=== PATIENT | female | born 1945 | race Caucasian/White ===

== ENCOUNTER 2016-11-22 06:49 | Inpatient (IN) ==
--- NOTE | 2016-11-21 21:40 | Discharge Summary ---
<Pavithar Vigil - Last Filed: 11/21/16 21:57> Date of Encounter: 11/21/16 - Discharge Diagnosis (1) Rotator cuff tear arthropathy of right shoulder Priority: Primary Status: Acute (2) Depression Priority: Secondary Status: Chronic Qualifiers: Depression Type: unspecified Qualified Code(s): F32.9 - Major depressive disorder, single episode, unspecified (3) DMII (diabetes mellitus, type 2) Priority: Secondary Status: Chronic Qualifiers: Diabetes mellitus complication status: without complication Diabetes mellitus fci insulin use: unspecified intermediate project manager insulin use status Qualified Code(s): E11.9 - Type 2 diabetes mellitus without complications (4) Fibromyalgia Priority: Secondary Status: Chronic (5) HTN (hypertension) Priority: Secondary Status: Acute Qualifiers: Hypertension type: essential hypertension Qualified Code(s): I10 - Essential (primary) hypertension (6) Status post total replacement of right shoulder Priority: Primary Status: Acute - Discharge Medications Home Medications: Aspirin Enteric Coated [Aspirin EC] 81 mg PO DAILY 11/26/15 [History] Ca/D3/Mag#11/Zinc/Cake Press Operator/Darrick/Bor [Caltrate 600+D Plus Tablet] 1 tab PO DAILY 11/25 [History] Cholecalciferol (D-3) [Vitamin D] 2,000 unit PO DAILY 11/26/15 [History] Flaxseed Oil [[place]-3 Flaxseed Oil] 1,000 mg PO DAILY 11/26/15 [History] Lisinopril [Zestril] 5 mg PO DAILY 11/26/15 [History] Lovastatin [Mevacor] 20 mg PO HS 11/26/15 [History] Omeprazole [PriLOSEC] 20 mg PO DAILY 11/26/15 [History] Potassium Chloride [K-Tab ER] 10 meq PO DAILY 11/26/15 [History] hydrOXYzine HCl [Hydroxyzine HCl] 25 mg PO TID 11/26/15 [History] metFORMIN [Glucophage] 500 mg PO BIDWM 11/26/15 [History] Duloxetine HCl [Cymbalta] 60 mg PO DAILY 01/15/16 [History] OxyCODONE Immed Rel [Roxicodone 5 MG] 5 - 10 mg PO Q6HR PRN #40 tablet 11/21/16 [Rx] Ascorbic Acid [Vitamin C] 500 mg PO DAILY 11/22/16 [History] Hydrocodone/Acetaminophen [[place] 7.5-325 Tablet] 1 tab PO Q6H PRN 11/22/16 [ History] Allergies/Adverse Reactions: Allergies bupropion [From Wellbutrin] Adverse Reaction (Verified 11/22/16 08:17) Vomiting Primary care physician: Cholo Stinson MD - Patient Status Disposition: Home, Self-Care Condition: Good - Discharge Instructions Follow Up With: Cholo Stinson MD [Primary Care Provider] - - Hospital Course Hospital course: Ms. Hill is a 70 year old female - Time Spent with Patient Total time spent providing and/or coordinating discharge services: <Jerel Unger - Last Filed: 11/23/16 06:19> Date of Encounter: 11/23/16 Time of Encounter: 06:18 - Discharge Diagnosis (1) Obesity (BMI 35.0-39.9 without comorbidity) Priority: Secondary Status: Chronic (2) Rotator cuff tear arthropathy of right shoulder Priority: Primary Status: Chronic (3) Depression Priority: Secondary Status: Chronic Qualifiers: Depression Type: unspecified Qualified Code(s): F32.9 - Major depressive disorder, single episode, unspecified (4) DMII (diabetes mellitus, type 2) Priority: Secondary Status: Chronic Qualifiers: Diabetes mellitus complication status: without complication Diabetes mellitus intermediate project manager insulin use: unspecified intermediate project manager insulin use status Qualified Code(s): E11.9 - Type 2 diabetes mellitus without complications (5) Fibromyalgia Priority: Secondary Status: Chronic (6) HTN (hypertension) Priority: Secondary Status: Chronic Qualifiers: Hypertension type: essential hypertension Qualified Code(s): I10 - Essential (primary) hypertension (7) Status post total replacement of right shoulder Priority: Primary Status: Acute (8) Dyspnea Priority: Primary Status: Acute Qualifiers: Dyspnea type: shortness of breath Qualified Code(s): R06.02 - Shortness of breath (9) Postoperative hypoxemia Priority: Primary Status: Acute Primary care physician: Cholo Stinson MD - Patient Status Functional capacity at discharge: independent ambulation Overall status at discharge: patient is progressing back to baseline - Hospital Course Hospital course: Ms. Hill is a 70 year old female Status post right total shoulder replacement. Patient developed postoperative hypoxemia and dyspnea. Patient had a CT angiogram of the chest which was negative for PE. Patient responded to supportive management on discharge she is doing well no shortness of breath. She received physical therapy and antibiotics follow 1 week. - Time Spent with Patient Total time spent providing and/or coordinating discharge services:
[2016-11-22] MEDS ORDERED: CeFAZolin Pre 2,000 MG/100 ML 2,000 MG/100 ML BAG IVPB ONE (07:29)
[2016-11-22] MEDS ORDERED: Gabapentin 300 MG CAPSULE PO ONE (07:30)
[2016-11-22] MEDS ORDERED: Ringers Solution, Lactated 1,000 ML IVC SCH ×2 (07:30→11:11)
[2016-11-22] MEDS ORDERED: Famotidine 20 MG/2 ML VIAL IVP ONE (07:32)
--- NOTE | 2016-11-22 07:45 | History & Physical Report ---
Date of Encounter: 11/22/16 Time of Encounter: 07:44 24 Hour HP Update - Instructions Instructions: If the History and Physical is less than 30 days old and was completed prior to A.M. admission and or procedure and has NOT been updated on calendar day of procedure please complete this update prior to performing procedure. - Update Patient reports changes in Medical Condition: No Changes in examination, assessment, or condition: No Changes in Medication: No Preop tests/diagnostics Reviewed: Yes Surgery Remains Indicated: Yes Consent for Planned Operative Procedure(s) Verified: Yes - Pre-Operative Checklist Preoperative Checklist Indicated: No Prophylactic Antibiotic Ordered: Yes Is VTE Prophylaxis Indicated?: Yes
[2016-11-22] MEDS ORDERED: *HR* Succinylcholine 200 MG/10 ML VIAL IVP ONE (08:20)
[2016-11-22] MEDS ORDERED: Ondansetron 4 MG/2 ML VIAL ONE (08:20)
[2016-11-22] MEDS ORDERED: Lidocaine -MPF 2% 2 ML VIAL ONE (08:20)
[2016-11-22] MEDS ORDERED: *HR* FentaNYL (PF) 100 MCG/2 ML VIAL ONE (08:21)
[2016-11-22] MEDS ORDERED: *HR* Midazolam HCl 2 MG/2 ML VIAL ONE (08:21)
--- NOTE | 2016-11-22 08:47 | Anesthesia Evaluation PreOp ---
Date of Encounter: 11/22/16 Time of Encounter: 08:45 - Past History Planned Operation: Rt Total Shoulder Replacement Cardiac History: HTN, Hyperlipidemia Pulmonary History: Denies Any Significant HX NETWORK DIRECTOR History: Denies Any Significant HX Other Medical History: Diabetes Type II, GERD, Other (IBS) Anesthesia History: No Prior Anesthetic Complications Alcohol Use: none Drug use: none Medications and Allergies Aspirin Enteric Coated [Aspirin EC] 81 mg PO DAILY 11/26/15 [History] Ca/D3/Mag#11/Zinc/Photoengraving Finisher/Darrick/Bor [Caltrate 600+D Plus Tablet] 1 tab PO DAILY 11/25 [History] Cholecalciferol (D-3) [Vitamin D] 2,000 unit PO DAILY 11/26/15 [History] Flaxseed Oil [[place]-3 Flaxseed Oil] 1,000 mg PO DAILY 11/26/15 [History] Lisinopril [Zestril] 5 mg PO DAILY 11/26/15 [History] Lovastatin [Mevacor] 20 mg PO HS 11/26/15 [History] Omeprazole [PriLOSEC] 20 mg PO DAILY 11/26/15 [History] Potassium Chloride [K-Tab ER] 10 meq PO DAILY 11/26/15 [History] hydrOXYzine HCl [Hydroxyzine HCl] 25 mg PO TID 11/26/15 [History] metFORMIN [Glucophage] 500 mg PO BIDWM 11/26/15 [History] Duloxetine HCl [Cymbalta] 60 mg PO DAILY 01/15/16 [History] OxyCODONE Immed Rel [Roxicodone 5 MG] 5 - 10 mg PO Q6HR PRN #40 tablet 11/21/16 [Rx] Ascorbic Acid [Vitamin C] 500 mg PO DAILY 11/22/16 [History] Hydrocodone/Acetaminophen [[place] 7.5-325 Tablet] 1 tab PO Q6H PRN 11/22/16 [ History] Allergies bupropion [From Wellbutrin] Adverse Reaction (Verified 11/22/16 08:17) Vomiting - Meds/Allergy Pre-op Review Medications Reviewed: Yes Allergies Reviewed: Yes Beta Blockers on Current Med List: No Anesthesia Results - Labs Laboratory Tests 11/17/16 11/17/16 10:44 10:44 Hgb 14.6 Hct 45.1 H Plt Count 294 Sodium 138 Potassium 4.0 BUN 12 Creatinine 0.82 - Imaging EKG: report reviewed (SR Borderline Left [place] Deviation) Additional studies: ECHO 2014 LVEF 60% Stress Negative Anesthesia Exam O2 Sat Height 1.55 m Height 1.55 m Weight 87.543 kg Weight 87.543 kg O2 Sat by Pulse Oximetry 92 Vital Signs Temp Pulse Resp BP Pulse Ox 98.3 F 96 18 142/77 92 11/22/16 07:29 11/22/16 07:29 11/22/16 07:29 11/22/16 07:29 11/22/16 07:29 Height: 5'1 Weight: 193 lbs NPO (# of Hours): [place] Pain Scale: 0 - HEENT Pupil (Motor): Pupils equal, EOMI Mallampati: III Teeth: Edentulous Oral Opening: Less than or equal to 3 - NETWORK DIRECTOR LOC: Oriented NETWORK DIRECTOR Motor: Normal RUE, Normal LUE, Normal RLE, Normal LLE, Normal Face NETWORK DIRECTOR Sensory: Normal: RUE, LUE, RLE, LLE, Face - Cardiac Rhythm: Regular Murmur: None JVD: No Carotid Bruit: No - Pulmonary Breath Sounds: bilateral Clear Respiratory Effort: Symmetrical Anesthesia Assess/Plan ASA Score: 3 (HTN DM Gerd) Modified Wiley Scale for Level of Consciousness: Cooperative, oriented, and tranquil Anesthetic Plan: General, Regional Monitoring Plan: Standard Monitors Recovery Plan: PACU (Discussed GA and RA, agrees to proceed)
[2016-11-22] MEDS ORDERED: ROPIVACAINE HCL/PF 0.5% 30 ML VIAL ONE (09:07)
[2016-11-22] MEDS ORDERED: Tetracaine/PF 20 MG/2 ML AMPUL ONE (09:08)
[2016-11-22] MEDS ORDERED: *HR* HYDROmorphone (PF) 1 MG/ML SYRINGE IVP PRN (09:52)
[2016-11-22] MEDS ORDERED: *HR* Meperidine 25 MG/ML SYRINGE IVP PRN (09:52)
[2016-11-22] MEDS ORDERED: *HR* Propofol 200 MG/20 ML VIAL IVP ONE (09:56)
--- NOTE | 2016-11-22 09:57 | Anesthesia Procedures ---
Date of Encounter: 11/22/16 Time of Encounter: 09:15 Procedures: Anesthesia - Nerve Block Procedure Date: 11/22/16 Time: 09:15 Checklist: Correct Patient Identifier Correct side: Right Blood Thinner: No Monitor Applied: EKG, BP, Pulse Oximetry Supplemental Oxygen via Nasal Cannula (L/min): 2 Sedation: Fentanyl (mcg): 100 Indication: Post Op Analgesia Pre-op Neuro Deficits: No Block Type: Supraclavicular, Other (ICM/intercosto.) Catheter placed: No Sterile Technique: Yes Ultrasound used: Yes Anatomy identified: Yes Visual spread of Local: Yes Neuro Stimulation: No Blood on Needle Aspiration: No Smooth Injection of Local: Yes Pain with Injection of Local: No Prep: Chlorhexadine Needle: 22 x 50 mm Stimuplex Local: Ropivacaine (0.5 % with 8 of decadron) Volume (cc): 30 Number of Attempts: 1 Complications: None/effective block Vitals: vss
[2016-11-22] MEDS ORDERED: Dexamethasone 4 MG/ML VIAL ONE ×2 (10:00)
--- NOTE | 2016-11-22 10:18 | Orthopedic Operative Note ---
Date of procedure: 11/22/16 Pre-op diagnosis: Right shoulder cuff tear arthropathy Post-op diagnosis: same Procedure: Procedure: Total Shoulder Replacment Reverse, right Estimated blood loss: 100 cc Hardware: Metal and polyethylene replacement: Arthrex small glenoid baseplate, 2 4.5 screws. 1 6.5 screw, 36+4 glenosphere, 6 humeral stem, poly insert 3 and 6 metal Exam Under anesthesia: Full motion and no instability Procedural Notes: Grade 4 arthritic changes humeral head glenoid socket, irreparable tear [id number] tendon. Operative procedure: The patient was brought to the operating room and placed on the operating room table. After general anesthesia was administered the operative shoulder was examined. Findings were noted. The patient was placed in the modified beachchair position. All pressure points were padded appropriately. And the head was stabilized in the neutral position. The operative extremity was prepped and draped in the sterile surgical fashion. The patient received IV antibiotics prior to skin incision. A standard deltopectoral approach was made to the operative shoulder. Incision was made to the skin and subcutaneous tissue,hemo stasis was obtained with Bovie cautery. Using careful blunt dissection the cephalic vein was identified and mobilized medially. The deltopectoral interval was developed and the clavipectoral fascia was incised. The subscap was released off the lesser tuberosity and tagged with #2 FiberWire suture, subscap was irreparable. The humerus was dislocated patient noted to have irreparable tear supraspinatus tendon, and the humeral cut was made along the anatomic neck. Patient noted to have grade 4 arthritic changes humeral head and glenoid socket. Anterior and posterior Bankart retractors were placed to expose the glenoid. The glenoid guide was seated and the centering hole was made. It was reamed with the appropriate reamer. The small baseplate was seated and secured with (2) 4.5 screws and one 6.5 screw. The baseplate was irrigated and dried and the 36+4 Glenosphere was seated and secured with the Dunn taper. The Dunn taper was tested and found to be secure the humerus was redislocated and prepared with the diaphyseal reamers, followed by a broaching process up to the appropriate size 6 in the patient's anatomic version. The metaphyseal reamer was then utilized. Trial reduction found the shoulder to be relocatable. Trial components were removed and the appropriate size 6 stem was impacted in place in the patient's anatomic version. Trial reduction found the shoulder to be relocatable and stable with the appropriate 3 [place] in 6 metal Trial component was removed and the real implants was seated and secured the shoulder was reduced. The shoulder had excellent motion and excellent stability and no evidence of dislocation. The deep tissue was irrigated with pulse irrigation. The PA closed the shoulder. The deltopectoral interval was closed with a running #1 PDS suture, subcutaneous tissue was irrigated and closed with 0 PDS suture, the skin was closed with Dermabond. The patient was placed in a sterile dressing, abduction brace and extubated. The patient was then transferred to the recovery room in stable condition. Anesthesia: LLUVIA Surgeon: Jerel Unger Paint Specialist: Latisha Contreras Condition: stable Disposition: PACU
[2016-11-22 11:06] LABS: Hematocrit 39.6 % (35.3-44.9)
[2016-11-22] MEDS ORDERED: Sennosides 8.6 MG TABLET PO PRN (11:11)
[2016-11-22] MEDS ORDERED: *HR* OxyCODONE Immed Rel 5 MG TABLET PO PRN (11:11)
[2016-11-22] MEDS ORDERED: ceFAZolin 2,000 MG in D5% in Water 100 ML IVPB SCH (11:11)
[2016-11-22] MEDS ORDERED: Dextrose Gel 15 GM PO PRN ×2 (11:11)
[2016-11-22] MEDS ORDERED: D5% in Water 1,000 ML IVC PRN (11:11)
[2016-11-22] MEDS ORDERED: Temazepam 15 MG CAPSULE PO PRN (11:11)
[2016-11-22] MEDS ORDERED: MOM Conc 10 ML UD.LIQ PO PRN (11:11)
[2016-11-22] MEDS ORDERED: Naloxone 0.4 MG/ML INJ IVP PRN (11:11)
[2016-11-22] MEDS ORDERED: *HR* Dextrose 50 % in Water (Syg) 50 ML SYRINGE IVP PRN (11:11)
[2016-11-22] MEDS ORDERED: Ondansetron 4 MG/2 ML VIAL IVP PRN (11:11)
--- NOTE | 2016-11-22 11:14 | Anesthesia Evaluation Post Op ---
Date of Encounter: 11/22/16 Time of Encounter: 11:13 - Vital Signs Vital Signs: Last Vital Signs Temp 97.6 F 11/22/16 10:55 Pulse 92 11/22/16 10:55 Resp 18 11/22/16 10:55 BP 114/63 11/22/16 10:55 Pulse Ox 98 11/22/16 10:55 - Lungs Lungs: Clear Ascult./Percussion - Airway Airway: Non-obstructed - Cardiovascular Regular Rate - Mental Status Mental Status: Alert & Oriented, Answers Appropriately - Pain Pain Scale: 2 - Nausea Vomiting Nausea Vomiting: Not Present - Hydration Hydration: NPO - Discharge PostOp Status: Transfer Patient to floor
[2016-11-22] MEDS ORDERED: Furosemide 20 MG/2 ML VIAL IVP ONE (14:49)
[2016-11-22] MEDS: *HR* Enoxaparin 30 MG/0.3 ML SYRINGE SQ SCH (15:03)
[2016-11-22] MEDS: ceFAZolin 2,000 MG in D5% in Water 100 ML IVPB SCH (15:05)
[2016-11-22 15:36] LABS: BUN/Creatinine Ratio 16 (6-26); Blood Urea Nitrogen 15 mg/dL (7-20); Calcium 9.6 mg/dL (8.6-10.8); Carbon Dioxide 26 mEq/L (19-29); Chloride 101 mEq/L (98-109); Glucose 319 mg/dL (70-99); Osmolality,Calculated 299 (280-300); Potassium 4.9 mEq/L (3.5-4.5); Sodium 138 mEq/L (136-145); eGFR For African Americans > 60 (> 60); eGFR For Non-African Americans 58 (> 60)
[2016-11-22] MEDS: *HR* Metformin 500 MG TABLET PO SCH (15:55)
[2016-11-22] MEDS: Ascorbic Acid 500 MG TABLET PO SCH (15:59)
[2016-11-22] MEDS: (Ca/D3/Mag#11/Zinc/Cop/Mang/Bor [Caltrate 600+D Plus PO SCH (16:00)
--- NOTE | 2016-11-22 16:01 | Event Note ---
Date of Encounter: 11/22/16 Time of Encounter: 15:00 Patient seen at bedside as nursing documented acute oxygen desaturation to low 70's and dyspnea. On exam, patient has labored breathing, pallor, and diaphoretic. Patient taking gasping breath every third word. Patient relays that she has had episodes like this for years with exertion and a known heart murmur. States that she has not been seeing a data review specialist for this condition. Patient heart rate is regularly irregular, systolic murmur noted, lung sounds congested in all lung spencer, patient RR 25, HR during examination 115, BP 158/ 110, O2 via nasal canulla at 2L, O2 saturation 88%. Fluid hold, stat chest xray , stat BMP, Lasix 20mg IVP, Lovenox, and stat CTA as well as stat hospitalist consult ordered. CXR reviewed - negative for acute changes. Patient urinating independently - secondary to lasix and patient reveals was placed on abx for UTI appx 5 days prior to surgery will place on [place] temporarily and culture urine. S/w hospitalist who states after the above patient is stable for CTA scan , ICU bed request - also to get doppler of left LE secondary to calf pain patient states has been present for past 5 days and above symptomatology. Above communicated with Dr. Unger.
--- NOTE | 2016-11-22 16:34 | Internal Medicine Consult Note ---
<Caitlin Mathew - Last Filed: 11/22/16 23:36> Date of Encounter: 11/22/16 Time of Encounter: 16:28 - Assessment and Plan (1) Dyspnea Current Visit: Yes Status: Acute Assessment and plan: Patient had episode of shortness of breath and hypoxia which started during her therapy, with reports of saturations in 70s on room air, and improved to 92% on 2L NC. Patient reports her symptoms happen to her frequently at home and are relieved when she sits in front of a fan or air-conditioning. Stat CXR did not show any pulmonary vascular congestion or consolidation. Concern for DVT/PE, stat CTA chest showed no pulmonary embolism or acute pulmonary abnormality. BLE dopplers pending. Acute shortness of breath and hypoxia likely related to a combination of coming off of anesthesia and anxiety. titrate O2 to maintain saturations > 92% Incentive spirometry. Qualifiers: Dyspnea type: shortness of breath Qualified Code(s): R06.02 - Shortness of breath (2) Status post total replacement of right shoulder Current Visit: Yes Status: Acute Assessment and plan: Care per primary team. (3) DMII (diabetes mellitus, type 2) Current Visit: Yes Status: Chronic Assessment and plan: check blood sugars ACHS. Continue home metformin Sliding scale correction dose ACHS hypoglycemic protocol. 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 Continue home doses of medications. Qualifiers: Hypertension type: essential hypertension Qualified Code(s): I10 - Essential (primary) hypertension Internal Medicine - CN: HPI - Data of Consult Patient: new to practice Requesting Physician: Jerel Unger MD - Consult Narrative Reason for consult: hypoxia History of present illness: Ms. Hill is a 70 year old female with HTN, diabetes, GERD and history of colon cancer s/p right daja-colectomy, admitted for right total shoulder replacement by Dr. Unger, which she underwent earlier today. We were consulted after the patient developed shortness of breath, hypoxia and tachycardia. Patient was reportedly satting in the 70s% on room air and improved to 92% on 2L. She was tachycardic to 110s as well, and was reporting calf tenderness. Stat CXR, CTA chest and BLE dopplers ordered. CXR showed no focal airspace consolidation or pulmonary vascular congestion. CT Chest is pending. Patient reports she has episodes like these frequently at home. She reports she has sudden onset of shortness of breath with sweating and she feels better after sitting in front of a fan. On my assessment, patient reports she is feeling much better than before. She denies any chest pain or palpitations. Past Med Surg Social Fam HX - Past Medical History Medical history: arthritis, diabetes, GERD, hypertension Psychiatric history: anxiety, depression - Past Surgical History Surgical History: hysterectomy - Social History Smoking Status: Never smoker Smokeless Tobacco Status: No Alcohol use: none Drug use: none - Constitutional Constitutional: excessive sweating, no fever(s), no weakness - Cardiovascular Cardiovascular ROS IM: diaphoresis, dyspnea, no chest pain, no palpitations, no syncope - Respiratory Respiratory: dyspnea, no cough, no wheezing, no excessive phlegm production - Gastrointestinal Gastrointestinal: no abdominal pain, no diarrhea, no nausea, no vomiting - Genitourinary Genitourinary: no dysuria Internal Medicine - CN: Meds Aspirin Enteric Coated [Aspirin EC] 81 mg PO DAILY 11/26/15 [History] Ca/D3/Mag#11/Zinc/Manager Mobility/Darrick/Bor [Caltrate 600+D Plus Tablet] 1 tab PO DAILY 11/25 [History] Cholecalciferol (D-3) [Vitamin D] 2,000 unit PO DAILY 11/26/15 [History] Flaxseed Oil [[place]-3 Flaxseed Oil] 1,000 mg PO DAILY 11/26/15 [History] Lisinopril [Zestril] 5 mg PO DAILY 11/26/15 [History] Lovastatin [Mevacor] 20 mg PO HS 11/26/15 [History] Omeprazole [PriLOSEC] 20 mg PO DAILY 11/26/15 [History] Potassium Chloride [K-Tab ER] 10 meq PO DAILY 11/26/15 [History] hydrOXYzine HCl [Hydroxyzine HCl] 25 mg PO TID 11/26/15 [History] metFORMIN [Glucophage] 500 mg PO BIDWM 11/26/15 [History] Duloxetine HCl [Cymbalta] 60 mg PO DAILY 01/15/16 [History] OxyCODONE Immed Rel [Roxicodone 5 MG] 5 - 10 mg PO Q6HR PRN #40 tablet 11/21/16 [Rx] Ascorbic Acid [Vitamin C] 500 mg PO DAILY 11/22/16 [History] Hydrocodone/Acetaminophen [[place] 7.5-325 Tablet] 1 tab PO Q6H PRN 11/22/16 [ History] Allergies bupropion [From Wellbutrin] Adverse Reaction (Verified 11/22/16 08:17) Vomiting Internal Medicine - CN: Exam - Constitutional Vitals: Temp Pulse Resp BP Pulse Ox 98.4 F 117 20 141/86 92 11/22/16 13:15 11/22/16 13:15 11/22/16 13:15 11/22/16 13:15 11/22/16 13:15 General appearance IM: Present: A&O X 3, pleasant, no acute distress - Head Head exam: Present: atraumatic, normocephalic - Eye Eye exam: Present: PERRL, conjuntiva pink, sclera anicteric - Neck Neck exam general surgery: Present: supple, trachea midline - Respiratory Respiratory exam: Present: CTAB. Absent: accessory muscle use, rales, rhonchi, wheezes - Cardiovascular Cardiovascular exam IM: Present: RRR, +S1, +S2, systolic murmur. Absent: bradycardia, clicks, gallop, tachycardia - GI/Abdominal GI/Abdominal exam IM: Present: soft. Absent: distended, tenderness, no peritoneal signs - Extremities Exam Additional comments: shoulder with surgical dressing and sling in place - Neurological Exam Neurological exam: Present: alert, CN II-XII intact, oriented X3, strengths equal and symetr throughout. Absent: facial droop, speech deficit Internal Medicine - CN: Reslt - Labs CBC & Chem 7: 11/22/16 10:56 11/22/16 15:07 Labs: Short CBC 11/22/16 Range/Units 10:56 Hgb 13.0 D (11.5-15.4) g/dL Hct 39.6 (35.3-44.9) % BMP 11/22/16 15:07 Sodium 138 Potassium 4.9 H Chloride 101 Carbon Dioxide 26 BUN 15 Creatinine 0.95 Glucose 319 H Calcium 9.6 - Impressions Impressions Shoulder X-Ray 11/22/16 00:01 IMPRESSION: Status post right shoulder arthroplasty without evidence of acute postoperative complication. D/ / 11/22/2016 12:41:47 Juan Luis David MD / bcarter Interpreting Provider: Juan Luis David MD Chest X-Ray 11/22/16 14:29 IMPRESSION: No focal airspace consolidation or pulmonary vascular congestion. D/ / Aaron Teran / Aaron Teran Interpreting Provider: Aaron Teran - Diagnostic Studies Chest x-ray Additional comments: Chest X-Ray 11/22/16 14:29 IMPRESSION: No focal airspace consolidation or pulmonary vascular congestion. D/ / Aaron Teran / Aaron Teran Interpreting Provider: Aaron Teran Consult Discharge Plan - Plan Referrals: Cholo Stinson MD [Primary Care Provider] - <Crow Vallejo - Last Filed: 11/23/16 07:48> Date of Encounter: 11/23/16 Internal Medicine - CN: HPI - Data of Consult Requesting Physician: Jerel Unger MD - Consult Narrative History of present illness: Ms. Hill is a 70 year old female Internal Medicine - CN: Exam - Constitutional Vitals: Temp Pulse Resp BP Pulse Ox 97.8 F 77 17 166/91 98 11/23/16 06:55 11/23/16 06:55 11/23/16 06:55 11/23/16 06:55 11/23/16 06:55 Internal Medicine - CN: Reslt - Labs CBC & Chem 7: 11/23/16 03:00 11/23/16 03:00 Labs: Short CBC 11/22/16 11/23/16 Range/Units 10:56 03:00 Hgb 13.0 D 12.0 (11.5-15.4) g/dL Hct 39.6 36.3 (35.3-44.9) % BMP 11/22/16 11/23/16 15:07 03:00 Sodium 138 140 Potassium 4.9 H 4.2 Chloride 101 101 Carbon Dioxide 26 29 BUN 15 17 Creatinine 0.95 0.86 Glucose 319 H 210 H Calcium 9.6 9.4 Urine 11/22/16 Range/Units 17:55 Urine Color Yellow (Yellow) Urine Clarity Clear (Clear) Urine pH 6.5 (5.0-8.0) pH Units Ur Specific [place] 1.020 (1.010-1.025) Urine Protein Negative (Neg-Trace) mg/dL Urine Glucose (UA) 250 H (Normal) mg/dL - Impressions Impressions Shoulder X-Ray 11/22/16 00:01 IMPRESSION: Status post right shoulder arthroplasty without evidence of acute postoperative complication. D/ / 11/22/2016 12:41:47 Juan Luis David MD / [place] Interpreting Provider: Juan Luis David MD Chest X-Ray 11/22/16 14:29 IMPRESSION: No focal airspace consolidation or pulmonary vascular congestion. D/ / Aaron Teran / Aaron Teran Interpreting Provider: Aaron Teran Chest CTA 11/22/16 14:47 IMPRESSION: No evidence of pulmonary embolism or acute pulmonary abnormality. Moderate hiatal hernia. D/ / Maia Grubbs Cha, MD / Maia Grubbs Cha, MD Interpreting Provider: Maia Grubbs Cha, MD - Attending Attestation I have personally performed a face to face evaluation on this patient and I discussed the assessment and plan with the nurse practitioner. I have reviewed and agree with the documented care plan. History and Exam by me shows: Ms. Hill is a 70 year old female with HTN, diabetes, GERD and history of colon cancer s/p right daja-colectomy, admitted for right total shoulder replacement by Dr. Unger, which she underwent earlier today. We were consulted after the patient developed shortness of breath, hypoxia and tachycardia. Patient was reportedly satting in the 70s% on room air and improved to 92% on 2L. She was tachycardic to 110s as well, and was reporting calf tenderness. Stat CXR, CTA chest and BLE dopplers ordered. CXR showed no focal airspace consolidation or pulmonary vascular congestion. CT Chest is pending. Patient reports she has episodes like these frequently at home. She reports she has sudden onset of shortness of breath with sweating and she feels better after sitting in front of a fan. Gen: A, A, O x 3 Chest: Mild diminished BS b/l basal regions, no crackles / rhonchi Heart : S1 S2 +, RRR, No murmurs Ext: Rt shoulder repair - dressing + sling placed on No calf tenderness in both legs a/p 1. Acute hypoxic respiratory distress mostly due to anaesthesia induced / possible phrenic nerve sedation during Rt shoulder repair However since pt c/o Left leg calf pain 2 days ago - need to r/o DVT and PE CTA of chest negative for PE Venous doppler pending cont duoneb encourage more frequent incentive spirometry
[2016-11-22] MEDS ORDERED: *HR* Enoxaparin 30 MG/0.3 ML SYRINGE SQ SCH (18:00)
[2016-11-22] MEDS: Insulin LISPRO 300 UNITS/3 ML VIAL SQ SCH ×2 (18:08→20:48)
[2016-11-22 18:13] LABS: Bilirubin,Urine Negative (Negative); Blood,Urine Negative (Negative); Clarity,Urine Clear (Clear); Color,Urine Yellow (Yellow); Glucose,Urine (UA) 250 mg/dL (Normal); Ketones,Urine Negative (Negative); Leukocyte Esterase,Urine Negative (Negative); Nitrite,Urine Negative (Negative); PH,Urine 6.5 pH Units (5.0-8.0); Protein,Urine Negative (Neg-Trace); Urobilinogen,Urine Normal (Normal)
[2016-11-22] MEDS ORDERED: Insulin LISPRO 300 UNITS/3 ML VIAL SQ SCH (21:00)
[2016-11-23] MEDS: ceFAZolin 2,000 MG in D5% in Water 100 ML IVPB SCH (00:31)
[2016-11-23 03:09] LABS: Hematocrit 36.3 % (35.3-44.9)
[2016-11-23 03:22] LABS: BUN/Creatinine Ratio 20 (6-26); Blood Urea Nitrogen 17 mg/dL (7-20); Calcium 9.4 mg/dL (8.6-10.8); Carbon Dioxide 29 mEq/L (19-29); Chloride 101 mEq/L (98-109); Glucose 210 mg/dL (70-99); Osmolality,Calculated 298 (280-300); Potassium 4.2 mEq/L (3.5-4.5); Sodium 140 mEq/L (136-145); eGFR For African Americans > 60 (> 60); eGFR For Non-African Americans > 60 (> 60)
[2016-11-23] MEDS: *HR* Enoxaparin 30 MG/0.3 ML SYRINGE SQ SCH ×2 (05:45→17:01)
--- NOTE | 2016-11-23 06:20 | Orthopedics Progress Note ---
Date of Encounter: 11/23/16 Time of Encounter: 06:20 - Assessment and Plan (1) Obesity (BMI 35.0-39.9 without comorbidity) Current Visit: Yes Status: Chronic (2) Rotator cuff tear arthropathy of right shoulder Current Visit: Yes Status: Chronic (3) Depression Current Visit: Yes Status: Chronic Qualifiers: Depression Type: unspecified Qualified Code(s): F32.9 - Major depressive disorder, single episode, unspecified (4) DMII (diabetes mellitus, type 2) Current Visit: Yes Status: Chronic Qualifiers: Diabetes mellitus complication status: without complication Diabetes mellitus intermediate insulin use: unspecified intermediate insulin use status Qualified Code(s): E11.9 - Type 2 diabetes mellitus without complications (5) Fibromyalgia Current Visit: Yes Status: Chronic (6) HTN (hypertension) Current Visit: Yes Status: Chronic Qualifiers: Hypertension type: essential hypertension Qualified Code(s): I10 - Essential (primary) hypertension (7) Status post total replacement of right shoulder Current Visit: Yes Status: Acute (8) Dyspnea Current Visit: Yes Status: Acute Qualifiers: Dyspnea type: shortness of breath Qualified Code(s): R06.02 - Shortness of breath (9) Postoperative hypoxemia Current Visit: Yes Status: Acute Subjective Interval history: Patient was seen this morning doing well without complaints. Afebrile vital signs stable. Operative extremity: Neurovascularly intact Dressing clean dry and intact Calves nontender Assessment and plan: Continue with postoperative care Hematocrit 36 doing better this morning discharged today Objective Vital signs: Vital Signs Temp Pulse Resp BP Pulse Ox 11/23/16 04:42 96.8 F L 85 18 130/84 96 11/22/16 22:51 97.9 F 95 20 164/96 96 11/22/16 20:49 97.8 F 89 20 168/94 100 11/22/16 20:17 100 11/22/16 18:39 98.6 F 113 24 145/76 95 11/22/16 14:15 98.7 F 112 24 158/101 92 11/22/16 13:15 98.4 F 117 20 141/86 92 11/22/16 12:15 97.7 F 91 20 124/86 91 11/22/16 11:45 98.7 F 97 20 141/82 91 11/22/16 11:10 98.7 F 95 20 131/82 91 11/22/16 10:55 97.6 F 92 18 114/63 98 11/22/16 10:45 91 18 111/52 98 11/22/16 10:35 94 18 119/61 98 11/22/16 10:25 98.3 F 101 17 125/64 97 11/22/16 09:12 101 16 135/64 100 11/22/16 07:29 98.3 F 96 18 142/77 92 Intake and Output 11/22/16 11/22/16 11/23/16 15:59 23:59 07:59 Intake Total 580 / 580 Output Total 400 / 400 525 / 525 Balance 180 / 180 -525 / -525 Intake: IV Fluids 100 / 100 Ancef 2,000 MG In 100 / 100 Dextrose 5% 100 ML @ 200 mls/hr IVPB Q8HR [facility] Rx#: [id number] Oral 480 / 480 Output: Urine 300 / 300 175 / 175 Estimated Blood Loss 100 / 100 Catheter 350 / 350 Other: Meal Lunch Percent of Meal Consumed 50% # Voids 2 Blood Glucose* 278 334 - Labs CBC & BMP: 11/23/16 03:00 11/23/16 03:00 Labs: Abnormal lab results Glucose 210 mg/dL (70-99) H 11/23/16 03:00 POC Glucose 175 (58-89) H 11/22/16 07:25 Urine Glucose (UA) 250 mg/dL (Normal) H 11/22/16 17:55 - VTE Documentation of Mechanical Device: Venous foot pump, device Consult Discharge Plan - Plan Referrals: Cholo Stinson MD [Primary Care Provider] -
[2016-11-23] MEDS: *HR* Metformin 500 MG TABLET PO SCH ×2 (07:19→17:02)
[2016-11-23] MEDS: Cholecalciferol (D-3) 1,000 UNIT TABLET PO SCH (07:20)
[2016-11-23] MEDS: (Ca/D3/Mag#11/Zinc/Cop/Mang/Bor [Caltrate 600+D Plus PO SCH (07:20)
[2016-11-23] MEDS: Aspirin Enteric Coated 81 MG Tablet PO SCH (07:20)
[2016-11-23] MEDS: Ascorbic Acid 500 MG TABLET PO SCH (07:20)
[2016-11-23] MEDS: Insulin LISPRO 300 UNITS/3 ML VIAL SQ SCH ×4 (07:21→21:48)
[2016-11-23] MEDS: (Flaxseed Oil [Omega-3 Flaxseed Oil] 1,000 MG) PO SCH (07:30)
--- NOTE | 2016-11-23 08:01 | Venous Imaging Report ---
LE Venous Duplex Patient Name:Janis Hill Order Number:[id number] Procedure Date:11/22/2016 Date:6Age:70 yrs Gender:Female Location:[facility] Room #: [id number] Restaurant Culinary Manager:Niles Millan Referring MD:Latisha Palma PA-C timber hand:Cholo Stinson MD Reading MD:Joseph Escoto MD , FACS Primary Indications:Acute dyspnea, Left calf pain Secondary Indications: Risk Factors Yes/No Anticoagulants Yes Impressions: Bilateral lower extremity: normal superficial and deep exam. Findings Prior Study: No prior study available for comparison. Lower Extremity Venous Duplex Side Vein Compress Spontaneous Flow Augment Diameter (cm) Depth (cm) Right Distal Iliac Normal Yes Phasic Yes Right Common Femoral Normal Yes Phasic Yes Right Superficial Femoral Normal Yes Phasic Yes Right Popliteal Normal Yes Phasic Yes Right Posterior Tibial Normal Yes Phasic Yes Right Peroneal Normal Yes Phasic Yes Right Saphenofemoral [place] Normal Yes Phasic Yes Right Great Saphenous Normal Yes Phasic Yes Right Lesser Saphenous Normal Yes Phasic Yes Left Distal Iliac Normal Yes Phasic Yes Left Common Femoral Normal Yes Phasic Yes Left Superficial Femoral Normal Yes Phasic Yes Left Popliteal Normal Yes Phasic Yes Left Posterior Tibial Normal Yes Phasic Yes Left Peroneal Normal Yes Phasic Yes Left Saphenofemoral [place] Normal Yes Phasic Yes Left Great Saphenous Normal Yes Phasic Yes Left Lesser Saphenous Normal Yes Phasic Yes Updated by Joseph Escoto MD, FACS on 11/23/2016 7:52:32 AM Joseph Escoto MD electronically signed on 11/23/2016 7:52:54 AM with status of Final
[2016-11-23] MEDS: *HR* OxyCODONE Immed Rel 5 MG TABLET PO PRN ×3 (09:08→17:01)
[2016-11-23] MEDS: *HR* HYDROmorphone (PF) 1 MG/ML SYRINGE IVP PRN ×3 (11:34→21:52)
--- NOTE | 2016-11-23 11:48 | Event Note ---
Date of Encounter: 11/23/16 Time of Encounter: 11:43 PCR - POD#1 - Right TSR-reverse 11/22 Patient seen at bedside. On O2 at 2 L via NC. Vitals stable, hypertension noted. Discussed with resident in the room* Surgery day: Patient dyspnea with tachycardia - CTA was negative, LLE doppler negative, UA negative for UTI Pain control: adequate, requesting IV pain medication over PO - informed we are D/C'ing IV secondary to her discharge home once stable. Not Participating in PT. Recommending respiratory therapy to continue to follow. All questions and concerns addressed. Educated on use of incentive spirometer, ambulation, and hydration. Patient educated on post-operative restrictions and care. Addressed: See above* D/C plan:. Home once weaned off O2 and stable. Setting up with PCP f/up. She will likely need HH at discharge with O2. D/C IV pain medication.
--- NOTE | 2016-11-23 12:58 | Internal Med Progress Note ---
<Beena Petit - Last Filed: 11/23/16 18:24> Date of Encounter: 11/23/16 Time of Encounter: 12:54 - Assessment and plan (1) Dyspnea Current Visit: Yes Status: Acute Assessment and plan: Patient had episode of shortness of breath and hypoxia which started during her therapy 11/22, with reports of saturations in 70s on room air, and improved to 92 % on 2L NC. Patient reports her symptoms happen to her frequently at home and are relieved when she sits in front of a fan or air-conditioning. She also notes that she has had SOB with exertion for months and a history of tobacco use , although she currently does not smoke. Stat CXR negative, CTA negative for PE or acute pulmonary abnormality. BLE dopplers negative for DVT. Acute shortness of breath and hypoxia likely related to a combination of coming off of anesthesia and anxiety vs underlying pulmonary disease such as COPD/ pulmonary fibrosis that will warrant further investigation as an outpatient. Plan: -Will get 6 minute walk test, patient may qualify for home oxygen an require this at discharge if unable to wean off oxygen -titrate O2 to maintain saturations > 92%, wean as tolerated. -Incentive spirometry. -D/C oximetry Qualifiers: Dyspnea type: shortness of breath Qualified Code(s): R06.02 - Shortness of breath (2) Status post total replacement of right shoulder Current Visit: Yes Status: Acute Assessment and plan: Continue PT and care per ortho (3) DMII (diabetes mellitus, type 2) Current Visit: Yes Status: Chronic Assessment and plan: check blood sugars ACHS. Continue home metformin Sliding scale correction dose ACHS hypoglycemic protocol. 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 Continue home doses of medications. Qualifiers: Hypertension type: essential hypertension Qualified Code(s): I10 - Essential (primary) hypertension - Subjective Interval history: The patient was seen and examined. She denies SOB currently, but has not been up for PT yet as she wanted to sleep this morning. Per nursing staff her oxygen saturation dropped into the 70's and 60's during a period when her oxygen was noted to be off. Patient states that for months prior to hospitalization she has been SOB any time that she does anything. She has a remote history of smoking. Denies home oxygen use or prior MT, pulmonary issues. - Constitutional Vitals: Temp Pulse Resp BP Pulse Ox 98.4 F 74 17 171/83 97 11/23/16 11:52 11/23/16 11:52 11/23/16 11:52 11/23/16 11:52 11/23/16 11:52 General appearance: Present: A&O X 3, pleasant, no acute distress - Head Head exam: Present: atraumatic, normocephalic - Eye Eye exam: Present: PERRL, conjuntiva pink, sclera anicteric Pupils: Present: PERRL - Respiratory Respiratory exam: Present: CTAB. Absent: accessory muscle use, rales, rhonchi, wheezes - Cardiovascular Cardiovascular exam: Present: RRR, +S1, +S2, systolic murmur - GI/Abdominal GI/Abdominal exam: Present: normal bowel sounds, soft, no peritoneal signs. Absent: distended, tenderness - Extremities Exam Extremities exam: Present: warm, radial pulses palpable and symetrical. Absent : calf tenderness, cyanotic, pedal edema Additional comments: right shoulder with surgical dressing and sling in place - Neurological Exam Neurological exam: Present: CN II-XII intact, oriented X3, no focal deficits. Absent: pronater drift, facial droop, speech deficit - Psychiatric Psychiatric exam: Present: normal affect, normal mood - Skin Skin exam: Present: dry, intact Internal Medicine: Result - Labs CBC & Chem 7: 11/23/16 03:00 11/23/16 03:00 Labs: Short CBC 11/23/16 Range/Units 03:00 Hgb 12.0 (11.5-15.4) g/dL Hct 36.3 (35.3-44.9) % BMP 11/22/16 11/23/16 15:07 03:00 Sodium 138 140 Potassium 4.9 H 4.2 Chloride 101 101 Carbon Dioxide 26 29 BUN 15 17 Creatinine 0.95 0.86 Glucose 319 H 210 H Calcium 9.6 9.4 Urine 11/22/16 Range/Units 17:55 Urine Color Yellow (Yellow) Urine Clarity Clear (Clear) Urine pH 6.5 (5.0-8.0) pH Units Ur Specific [place] 1.020 (1.010-1.025) Urine Protein Negative (Neg-Trace) mg/dL Urine Glucose (UA) 250 H (Normal) mg/dL - Impressions Impressions Chest X-Ray 11/22/16 14:29 IMPRESSION: No focal airspace consolidation or pulmonary vascular congestion. D/ / Aaron Teran / Aaron Teran Interpreting Provider: Aaron Teran Chest CTA 11/22/16 14:47 IMPRESSION: No evidence of pulmonary embolism or acute pulmonary abnormality. Moderate hiatal hernia. D/ / Maia Grubbs Cha, MD / Maia Grubbs Cha, MD Interpreting Provider: Maia Grubbs Cha, MD - VTE Documentation of Mechanical Device: Venous foot pump, device Consult Discharge Plan - Plan Referrals: Cholo Stinson MD [Primary Care Provider] - Prescriptions: Oxygen 1 each .ROUTE AD #1 each <Alton Young - Last Filed: 11/23/16 23:30> Date of Encounter: 11/23/16 - Constitutional Vitals: Temp Pulse Resp BP Pulse Ox 98.1 F 124 18 130/80 91 11/23/16 20:43 11/23/16 20:43 11/23/16 20:43 11/23/16 20:43 11/23/16 20:43 Internal Medicine: Result - Labs CBC & Chem 7: 11/23/16 03:00 11/23/16 03:00 Labs: Short CBC 11/23/16 Range/Units 03:00 Hgb 12.0 (11.5-15.4) g/dL Hct 36.3 (35.3-44.9) % BMP 11/23/16 03:00 Sodium 140 Potassium 4.2 Chloride 101 Carbon Dioxide 29 BUN 17 Creatinine 0.86 Glucose 210 H Calcium 9.4 - Attending Attestation I saw this patient with the Resident.. she appears comfortable. Will research her eCW chart to get better handle on breathing issues; she is somewhat of a questionable historian. The transient hypoxemia, could be error, or due to undiagnosed COPD or secondary Pulm HtN. She will be discharged soon with home O2 with possible cont. outpt. eval.
--- NOTE | 2016-11-23 15:21 | Physician Discharge Referral ---
Home Health/Hosp Referral Info Transfer to: Home Health Attending Provider: Provider in Charge Post Discharge: PCP - Diagnosis (1) Status post total replacement of right shoulder Priority: Primary Status: Acute (2) Rotator cuff tear arthropathy of right shoulder Priority: Primary Status: Chronic (3) Hypoxia Priority: Primary Status: Acute (4) Depression Priority: Secondary Status: Chronic (5) DMII (diabetes mellitus, type 2) Priority: Secondary Status: Chronic (6) Fibromyalgia Priority: Secondary Status: Chronic (7) HTN (hypertension) Priority: Secondary Status: Chronic - Respiratory Orders Oxygen / L per min (2L/min via NC) Smoking Cessation: Smoking cessation has been advised. For more information, call the [employer] Tobacco Quit Line at 4-406-JFBE-NOW. - Diet/Nutrition Diet/Nutrition Orders: Regular - Activity Activity Orders: Up ad jamin, Ambulate - Services Needed Following services are medically necessary services: Nursing, Home Health Aide, Physical Therapy, Occupational Therapy Home Care Orders: Opsite dressing, leave intact until first post-operative visit. If dressing becomes >50% saturated, contact office, remove dressing and place appropriate dressing in its place. Do not allow for dressing to get wet. Shoulder Precautions x 6 weeks. Apply cold therapy wrap 3-6x/day for 20 minutes at a time. Encourage ambulation throughout the day. Use Incentive spirometer 10x/hour. Elevate affected extremity above heart as tolerated. NWB to affected upper extremity x 6 weeks. Will remove brace at first post-operative appointment. OK to remove during PT/ OT and Home exercises. - Transfer Medications Prescriptions: Oxygen 1 each .ROUTE AD #1 each Home Medications: Aspirin Enteric Coated [Aspirin EC] 81 mg PO DAILY 11/26/15 [History] Ca/D3/Mag#11/Zinc/Hardware Installer/Darrick/Bor [Caltrate 600+D Plus Tablet] 1 tab PO DAILY 11/25 [History] Cholecalciferol (D-3) [Vitamin D] 2,000 unit PO DAILY 11/26/15 [History] Flaxseed Oil [[place]-3 Flaxseed Oil] 1,000 mg PO DAILY 11/26/15 [History] Lisinopril [Zestril] 5 mg PO DAILY 11/26/15 [History] Lovastatin [Mevacor] 20 mg PO HS 11/26/15 [History] Omeprazole [PriLOSEC] 20 mg PO DAILY 11/26/15 [History] Potassium Chloride [K-Tab ER] 10 meq PO DAILY 11/26/15 [History] hydrOXYzine HCl [Hydroxyzine HCl] 25 mg PO TID 11/26/15 [History] metFORMIN [Glucophage] 500 mg PO BIDWM 11/26/15 [History] Duloxetine HCl [Cymbalta] 60 mg PO DAILY 01/15/16 [History] OxyCODONE Immed Rel [Roxicodone 5 MG] 5 - 10 mg PO Q6HR PRN #40 tablet 11/21/16 [Rx] Ascorbic Acid [Vitamin C] 500 mg PO DAILY 11/22/16 [History] Hydrocodone/Acetaminophen [[place] 7.5-325 Tablet] 1 tab PO Q6H PRN 11/22/16 [ History] Oxygen 1 each .ROUTE AD #1 each 11/23/16 [Rx] Allergies/Adverse Reactions: Allergies bupropion [From Wellbutrin] Adverse Reaction (Verified 11/22/16 08:17) Vomiting Certification: Further, I certify that my clinical findings support that this patient is homebound (i.e. absences from home require considerable and taxing effort and are for medical reasons or confucianism services or infrequently or short duration when for other reasons) because: Homebound Reason: Post-surgery restriction and or conditions limit ability to leave home Attestation: My signature below is to certify that this patient is under my care and that I, or nurse practitioner, or a physician's classroom assistant working with me, has a face-to -face encounter with this patient.
[2016-11-24] MEDS: *HR* OxyCODONE Immed Rel 5 MG TABLET PO PRN ×3 (03:24→14:09)
[2016-11-24] MEDS: *HR* Enoxaparin 30 MG/0.3 ML SYRINGE SQ SCH (06:40)
--- NOTE | 2016-11-24 07:45 | Orthopedics Progress Note ---
Date of Encounter: 11/24/16 Time of Encounter: 07:45 - Assessment and Plan (1) Obesity (BMI 35.0-39.9 without comorbidity) Current Visit: Yes Status: Chronic (2) Rotator cuff tear arthropathy of right shoulder Current Visit: Yes Status: Chronic (3) Depression Current Visit: Yes Status: Chronic Qualifiers: Depression Type: unspecified Qualified Code(s): F32.9 - Major depressive disorder, single episode, unspecified (4) DMII (diabetes mellitus, type 2) Current Visit: Yes Status: Chronic Qualifiers: Diabetes mellitus complication status: without complication Diabetes mellitus correction insulin use: unspecified correction insulin use status Qualified Code(s): E11.9 - Type 2 diabetes mellitus without complications (5) Fibromyalgia Current Visit: Yes Status: Chronic (6) HTN (hypertension) Current Visit: Yes Status: Chronic Qualifiers: Hypertension type: essential hypertension Qualified Code(s): I10 - Essential (primary) hypertension (7) Status post total replacement of right shoulder Current Visit: Yes Status: Acute (8) Dyspnea Current Visit: Yes Status: Acute Qualifiers: Dyspnea type: shortness of breath Qualified Code(s): R06.02 - Shortness of breath (9) Postoperative hypoxemia Current Visit: Yes Status: Acute Subjective Interval history: Patient was seen this morning doing well without complaints. Afebrile vital signs stable. Operative extremity: Neurovascularly intact Dressing clean dry and intact Calves nontender Assessment and plan: Continue with postoperative care Stable today doing better discharged home Objective Vital signs: Vital Signs Temp Pulse Resp BP Pulse Ox 11/24/16 06:59 98.1 F 98 18 136/82 92 11/23/16 23:40 97.4 F L 100 18 131/69 97 11/23/16 20:43 98.1 F 124 18 130/80 91 11/23/16 17:10 94 11/23/16 16:17 97.8 F 90 16 141/72 95 11/23/16 11:52 98.4 F 74 17 171/83 97 Intake and Output 11/23/16 11/23/16 11/24/16 15:59 23:59 07:59 Intake Total 240 / 240 800 / 800 Output Total 800 / 800 Balance 240 / 240 0 / 0 Intake: Oral 240 / 240 800 / 800 Output: Urine 800 / 800 Other: Meal Lunch Percent of Meal Consumed 100% # Voids 1 Blood Glucose* 174 239 199 - Labs CBC & BMP: 11/23/16 03:00 11/23/16 03:00 Labs: Abnormal lab results Glucose 210 mg/dL (70-99) H 11/23/16 03:00 POC Glucose 239 (58-89) H 11/23/16 20:29 Urine Glucose (UA) 250 mg/dL (Normal) H 11/22/16 17:55 - VTE Documentation of Mechanical Device: Venous foot pump, device Consult Discharge Plan - Plan Referrals: Cholo Stinson MD [Primary Care Provider] - Prescriptions: Oxygen 1 each .ROUTE AD #1 each
[2016-11-24 08:04] LABS: Hematocrit 37.8 % (35.3-44.9); Hemoglobin 12.1 g/dL (11.5-15.4)
[2016-11-24] MEDS: Cholecalciferol (D-3) 1,000 UNIT TABLET PO SCH (08:41)
[2016-11-24] MEDS: Aspirin Enteric Coated 81 MG Tablet PO SCH (08:41)
[2016-11-24] MEDS: *HR* Metformin 500 MG TABLET PO SCH (08:41)
[2016-11-24] MEDS: Ascorbic Acid 500 MG TABLET PO SCH (08:41)
[2016-11-24] MEDS: Insulin LISPRO 300 UNITS/3 ML VIAL SQ SCH ×2 (08:41→11:47)
[2016-11-24] MEDS: (Flaxseed Oil [Omega-3 Flaxseed Oil] 1,000 MG) PO SCH (08:42)
[2016-11-24] MEDS: (Ca/D3/Mag#11/Zinc/Cop/Mang/Bor [Caltrate 600+D Plus PO SCH (08:42)
--- NOTE | 2016-11-24 09:50 | Internal Med Progress Note ---
<Beena Petit - Last Filed: 11/24/16 17:09> Date of Encounter: 11/24/16 Time of Encounter: 09:48 - Assessment and plan (1) Dyspnea Status: Acute Assessment and plan: Patient had episode of shortness of breath and hypoxia which started during her therapy 11/22, with reports of saturations in 70s on room air, and improved to 92 % on 2L NC. Patient reports her symptoms happen to her frequently at home and are relieved when she sits in front of a fan or air-conditioning. She also notes that she has had SOB with exertion for months and a history of tobacco use , although she currently does not smoke. Stat CXR negative, CTA negative for PE or acute pulmonary abnormality. BLE dopplers negative for DVT. Patient qualified for home oxygen, oxygen drops to 78% on RA with standing. Will go home on Oxygen. Recommend outpatient f/u/re-eval. Will send telephone encounter to PCP in [facility]. Acute shortness of breath and hypoxia likely related to a combination of coming off of anesthesia and anxiety vs underlying pulmonary disease such as COPD/ pulmonary fibrosis that will warrant further investigation as an outpatient. Stress test July 2013: negative ECHO July 2013: LVEF 65%, no valvular dysfunction PFT 06/20/2013: Restrictive Ventilation impairment. TLC, RV WNL; suggests secondary to obesity. NL gas exchange, no bronchodilator response Plan: -Home with oxygen today -titrate O2 to maintain saturations > 92%, wean as tolerated. -Incentive spirometry. -D/C oximetry Qualifiers: Dyspnea type: shortness of breath Qualified Code(s): R06.02 - Shortness of breath (2) Status post total replacement of right shoulder Status: Acute Assessment and plan: Continue PT and care per ortho (3) DMII (diabetes mellitus, type 2) Status: Chronic Assessment and plan: check blood sugars ACHS. Continue home metformin Sliding scale correction dose ACHS hypoglycemic protocol. 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 Continue home doses of medications. Qualifiers: Hypertension type: essential hypertension Qualified Code(s): I10 - Essential (primary) hypertension - Subjective Interval history: The patient was seen and examined. Patient qualified for home O2, desaturations with standing/ambulation on RA. She had PT this AM and tolerated it well. Plan for discharge today per ortho. - Constitutional Vitals: Temp Pulse Resp BP Pulse Ox 98.1 F 98 18 136/82 92 11/24/16 06:59 11/24/16 06:59 11/24/16 06:59 11/24/16 06:59 11/24/16 06:59 General appearance: Present: cooperative, A&O X 3, pleasant, no acute distress, obese, answers questions appropriately - Head Head exam: Present: atraumatic, normocephalic - Respiratory Respiratory exam: Present: CTAB. Absent: accessory muscle use, rales, rhonchi, wheezes - Cardiovascular Cardiovascular exam: Present: RRR, +S1, +S2, systolic murmur. Absent: diastolic murmur, gallop, rubs - GI/Abdominal GI/Abdominal exam: Present: normal bowel sounds, soft, no peritoneal signs. Absent: distended, tenderness - Extremities Exam Extremities exam: Present: warm, radial pulses palpable and symetrical. Absent : calf tenderness, cyanotic, pedal edema Additional comments: Dressing in place right shoulder, neurovascularly intact - Neurological Exam Neurological exam: Present: CN II-XII intact, oriented X3, no focal deficits. Absent: pronater drift, facial droop, speech deficit - Skin Skin exam: Present: dry, intact, warm. Absent: erythema Internal Medicine: Result - Labs CBC & Chem 7: 11/24/16 07:50 11/23/16 03:00 Labs: Short CBC 11/24/16 Range/Units 07:50 Hgb 12.1 (11.5-15.4) g/dL Hct 37.8 (35.3-44.9) % - VTE Documentation of Mechanical Device: Venous foot pump, device Consult Discharge Plan - Plan Additional Instructions: Discharge Instructions: Total Shoulder Please call [facility] ([phone]), your Primary Care Physician, or report to the Emergency Room if you have any of the following symptoms: Nausea, vomiting, fever greater that 101.5, swelling, chest pain, shortness of breath, increased pain/redness/drainage/odor for your incision site, numbness/ tingling, or any other concerning symptoms. ACTIVITY: Always keep your arm in the sling. Do not raise your arm away from your body. Do not use your arm to help with getting in or out of bed. No weight bearing permitted. Only perform those exercises given to you by your therapist. MEDICATIONS: Upon discharge resume your home medications. Take all the medications as prescribed. Take a stool softener if taking narcotic pain medications. Stool softeners are only effective if you drink enough fluids. Drink 6-8 glass of water or fluids a day, unless this is not allowed for another health problem. Despite using stool softeners, if you haven't had a bowel movement in 3 days, please switch to a gentle laxative. Gentle laxatives are sold over the counter. You should have a bowel movement within 24 hours, if not call the office. You will be discharged from the hospital with a prescription for pain medication. You are encouraged to decrease the use of narcotic pain medication as tolerated. Should you require a refill, please call the office. [facility] prescribes narcotic pain medication for only 4-6 weeks after surgery. If you require pain medication beyond this time period, you may be referred to your Primary Care Physician or to the Pain Clinic for further evaluation. Plan ahead for refills on pain medication as many narcotics either need to be picked up at the office or mailed. It is best to call 48-72 hours in advance of needing a prescription refill so you don't run out of medication. To help control the post-operative pain, you may take NSAIDs (Aleve,Advil, Motrin, Ibuprofen, Naprosyn) or Tylenol as prescribed on the bottle in addition to the pain medication. WOUND CARE: Leave the dressing on for 7-10 days. You may change the dressing if it becomes saturated greater than 50%. Do not get the dressing wet at anytime. Wash your hands with antibacterial soap, rinse and dry prior to any wound care. If you have liliya the visiting nurse or rehab facility can remove the stapes 10-14 days after surgery and place steri-strips across the wound. Leave the steri-strips in place until they fall off on their own. You may let water from the shower run on top of the steri-strips. If you do not have a visiting nurse or rehab facility, you will need to return to the office at 10-14 days for the liliya to be removed. If you have itching or redness around the dressing call the office. FOLLOW-UP: Please follow up with your surgeon in the orthopedic clinic, as scheduled Referrals: Cholo Stinson MD [Primary Care Provider] - Prescriptions: Oxygen 1 each .ROUTE AD #1 each <Alton Young - Last Filed: 11/24/16 18:07> Date of Encounter: 11/24/16 - Constitutional Vitals: Temp Pulse Resp BP Pulse Ox 98.5 F 99 16 123/69 96 11/24/16 11:06 11/24/16 11:06 11/24/16 11:06 11/24/16 11:06 11/24/16 11:06 Internal Medicine: Result - Labs CBC & Chem 7: 11/24/16 07:50 11/23/16 03:00 Labs: Short CBC 11/24/16 Range/Units 07:50 Hgb 12.1 (11.5-15.4) g/dL Hct 37.8 (35.3-44.9) % - Attending Attestation I examined this patient and my medical decision-making was reviewed with the Resident Physician. I agree with the documented findings, disposition and treatment plan as described except to the extent set forth below.
[2016-11-24 11:10] VITALS: BP 123/69
--- NOTE | 2016-11-24 12:14 | Event Note ---
Date of Encounter: 11/24/16 Time of Encounter: 13:20 PCR - POD#2 - Right TSR-reverse 11/22 Patient seen at bedside. On O2 at 2 L via NC. Vitals stable. Surgery day: Patient dyspnea with tachycardia - CTA was negative, LLE doppler negative, UA negative for UTI Pain control: adequate, IV pain med d/c Not Participating in PT. Recommending respiratory therapy to continue to follow. Encouraged PT participation secondary to wanting to send home for outpatient therapy. All questions and concerns addressed. Educated on use of incentive spirometer, ambulation, and hydration. Patient educated on post-operative restrictions and care. Addressed: See above. O2 with tubing, concentrator, and portable tanks prescribed for patient to have upon discharge. D/C plan:. Home once O2 arranged. Setting up with PCP f/up. She will likely need HH at discharge with O2. IV pain medication d/c'd.
== END 2016-11-24 17:27 | disposition home or self-care (01) | DRG 483 ==
LOC: SAMDAY 06:49 → 3NENU 10:54
PROVIDERS: ADMIT Orthopaedic Surgery; ATTEND Orthopaedic Surgery

== ENCOUNTER 2021-08-27 11:40 | Observation (INO) ==
[2021-08-27 13:05] LABS: Hematocrit 38.3 % (35.3-44.9); Hemoglobin 12.6 g/dL (11.5-15.4); Mean Corpuscular HGB Conc 32.9 g/dL (31.6-35.5); Mean Corpuscular Hemoglobin 27.9 pg (28.0-33.3); Mean Corpuscular Volume 84.9 fL (83.0-100.0); Mean Platelet Volume 8.8 fL (9.4-12.4); Platelet Count 307 K/mcL (140-400); Red Blood Count 4.51 M/mcL (3.82-4.97); Red Cell Distribution Width 13.2 % (11.5-14.5); White Blood Count 9.2 K/mcL (4.3-11.1)
[2021-08-27 13:32] LABS: Alanine Aminotransferase 8 Units/L (7-52); Albumin 3.5 g/dL (3.5-5.7); Albumin/Globulin Ratio 1.2 (1.1-2.2); Alkaline Phosphatase 72 Units/L (34-104); Aspartate Amino Transferase 11 Units/L (13-39); BUN/Creatinine Ratio 14 (6-26); Bilirubin,Direct 0.1 mg/dL (0.0-0.2); Bilirubin,Indirect 0.5 mg/dL (0.0-1.0); Bilirubin,Total 0.6 mg/dL (0.3-1.0); Blood Urea Nitrogen 12 mg/dL (8-23); Calcium 8.8 mg/dL (8.6-10.3); Carbon Dioxide 28 mEq/L (23-29); Chloride 103 mEq/L (98-107); Globulin 2.9 g/dL (2.4-3.5); Glucose 166 mg/dL (70-105); Lipase 11 Units/L (11-82); Osmolality,Calculated 290 (280-300); Potassium 3.7 mEq/L (3.5-5.1); Sodium 138 mEq/L (136-145); Total Protein 6.4 g/dL (6.4-8.9); eGFR For African Americans > 60 (> 60); eGFR For Non-African Americans > 60 (> 60)
[2021-08-27 13:57] LABS: Bacteria,Urine Moderate per hpf (None-Few); Bilirubin,Urine Negative (Negative); Blood,Urine Negative (Negative); Clarity,Urine Turbid (Clear); Color,Urine Light-Orange (Yellow); Glucose,Urine (UA) Normal (Normal); Hyaline Casts,Urine Many per lpf (None Seen); Ketones,Urine Trace mg/dL (Negative); Leukocyte Esterase,Urine Trace (Negative); Mucus,Urine Few per lpf (None-Few); Nitrite,Urine Positive (Negative); Protein,Urine 70 mg/dL (Neg-Trace); RBC,Urine 0-3 per hpf (0-3); Specific Gravity,Urine > 1.030 (1.010-1.025); Squamous Epithelial Cell,Urine Moderate per hpf (None-Few); Urobilinogen,Urine Normal (Normal)
[2021-08-27] MEDS ORDERED: cefTRIAXone 1,000 MG in 0.9 % Sodium Chloride Mini Bag 100 ML IVPB STA (14:34)
[2021-08-27] MEDS ORDERED: Ampicillin/Sulbactam 3,000 MG in 0.9 % Sodium Chloride Mini Bag 100 ML IVPB ONE (14:35)
[2021-08-27] MEDS ORDERED: Naloxone 0.4 MG/ML INJ IVP PRN (16:46)
[2021-08-27] MEDS ORDERED: Melatonin 3 MG TABLET PO PRN (16:46)
[2021-08-27] MEDS ORDERED: Ondansetron ODT 4 MG TAB.RAPDIS SL PRN (16:46)
[2021-08-27] MEDS ORDERED: SODIUM CHLORIDE/NAHCO3/KCL/PEG 4,000 ML SOLN.RECON PO ONE (17:00)
[2021-08-27] MEDS: Ampicillin/Sulbactam 3,000 MG in 0.9 % Sodium Chloride Mini Bag 100 ML IVPB SCH (21:25)
[2021-08-28] MEDS: Ampicillin/Sulbactam 3,000 MG in 0.9 % Sodium Chloride Mini Bag 100 ML IVPB SCH ×4 (03:35→20:28)
[2021-08-28] MEDS: lisinopriL 5 MG TABLET PO SCH (08:13)
[2021-08-28] MEDS ORDERED: BUDESONIDE 9 MG PO SCH (09:00)
[2021-08-28] MEDS ORDERED: Lidocaine -MPF 2% 2 ML VIAL ONE (09:00)
[2021-08-28] MEDS ORDERED: *HR* Propofol 200 MG/20 ML VIAL IVP ONE ×3 (09:00→09:35)
[2021-08-28] MEDS: *HR* SitaGLIPtin 100 MG TABLET PO SCH (10:48)
[2021-08-28] MEDS: MethylPREDNISolone 40 MG/ML VIAL IVP SCH ×2 (17:04→23:33)
[2021-08-29] MEDS: Ampicillin/Sulbactam 3,000 MG in 0.9 % Sodium Chloride Mini Bag 100 ML IVPB SCH ×2 (02:48→08:20)
[2021-08-29] MEDS ORDERED: *HR* Enoxaparin 40 MG/0.4 ML SYRINGE SQ SCH (06:00)
[2021-08-29] MEDS: lisinopriL 5 MG TABLET PO SCH (08:20)
[2021-08-29] MEDS: *HR* SitaGLIPtin 100 MG TABLET PO SCH (08:20)
[2021-08-29] MEDS ORDERED: *HR* Dextrose 50 % in Water (Syg) 50 ML SYRINGE IVP PRN (09:16)
[2021-08-29] MEDS ORDERED: Dextrose 4 GM Chewable Tablets PO PRN ×2 (09:16)
[2021-08-29] MEDS ORDERED: D5% in Water 1,000 ML IVC PRN (09:16)
[2021-08-29] MEDS: MethylPREDNISolone 40 MG/ML VIAL IVP SCH (10:45)
[2021-08-29] MEDS ORDERED: Insulin LISPRO 300 UNITS/3 ML VIAL SUBQ SCH ×2 (11:30→21:00)
[2021-08-29 11:38] VITALS: BP 160/84; PULSE 68; TEMP 97.7; O2SAT 95
[2021-08-31 15:09] LABS: QuantiFERON Mitogen minus NIL >10.00 IU/mL
[2021-08-31 15:14] LABS: QuantiFERON NIL 0.11 IU/mL; QuantiFERON-TB Gold In-Tube NEGATIVE (Negative)
== END 2021-08-29 14:52 | disposition home or self-care (01) ==
LOC: EMEROOARM 11:40 → 3ANU 11:40 → SUATTDRO 15:13 → 3ANU 15:58
PROVIDERS: ADMIT Internal Medicine; ATTEND Family Medicine